=== PATIENT | female | born 1980 | race Caucasian/White ===

== ENCOUNTER 2023-09-22 09:42 | Emergency (ER) | payer MEDICAID ==
[2023-09-22 10:44] LABS: BASOPHILS ABSOLUTE AUTO 0.03 K/uL (0.00-0.20); BASOPHILS PERCENT AUTO 0.6 % (0.0-1.0); EOSINOPHILS ABSOLUTE AUTO 0.03 K/uL (0.00-0.45); EOSINOPHILS PERCENT AUTO 0.6 % (0.0-6.0); HEMATOCRIT 36.7 % (37.0-47.0); HEMOGLOBIN 13.2 g/dL (12.0-16.0); IMMATURE GRAN ABSOLUTE AUTO 0.01 K/uL (0.00-0.05); IMMATURE GRAN PERCENT AUTO 0.2 % (0.0-0.4); LYMPHOCYTES ABSOLUTE AUTO 0.77 K/uL (1.00-4.80); LYMPHOCYTES PERCENT AUTO 16.5 % (24.0-44.0); MEAN CORPUSCULAR HEMOGLOBIN 37.1 pg (28.0-32.0); MEAN CORPUSCULAR VOLUME 103.1 fL (83.0-99.0); MONOCYTES ABSOLUTE AUTO 0.44 K/uL (0.00-0.80); MONOCYTES PERCENT AUTO 9.4 % (0.0-8.0); NEUTROPHILS ABSOLUTE AUTO 3.38 K/uL (1.80-7.70); NEUTROPHILS PERCENT AUTO 72.7 % (41.0-71.0); PLATELET COUNT,PLT 159 K/uL (150-400); RED BLOOD CELL COUNT 3.56 M/uL (4.10-5.30); WHITE BLOOD CELL COUNT,WBC 4.66 K/uL (3.9-11.3)
[2023-09-22 11:05] LABS: A/G RATIO 0.9 (0.9-1.6); ALBUMIN 3.7 g/dL (3.4-5.0); BILIRUBIN TOTAL 0.3 mg/dL (0.2-1.0); CARBON DIOXIDE,CO2 26.9 mmol/L (21.0-32.0); CREATININE 0.6 mg/dL (0.6-1.0); EST CRCL DRUG DOSING (CG) 111.38 mL/min; PROTEIN TOTAL,TP 7.9 g/dL (6.4-8.2)
[2023-09-22 11:16] LABS: T3 FREE 2.29 pg/mL (2.18-3.98); T4 FREE 0.61 ng/dL (0.76-1.46); TSH ULTRASENSITIVE 1.52 uIU/mL (0.36-3.74)
== END 2023-09-22 13:45 | disposition home or self-care (01) ==
LOC: MW.ED 09:42
DX: E04.1 Nontoxic single thyroid nodule (principal)
CPT/HCPCS: 36415; 76536; 76536-26; 80053; 82308; 84439; 84443; 84481; 85025; 99283; 99284

== ENCOUNTER 2023-10-13 22:37 | Emergency (ER) | payer MEDICAID ==
[2023-10-13] MEDS ORDERED: Cefuroxime 250 MG Tab PO ONE (23:10)
== END 2023-10-13 23:52 | disposition home or self-care (01) ==
LOC: MW.ED 22:37
DX: L03.211 Cellulitis of face (principal)
CPT/HCPCS: 99283; A9270

== ENCOUNTER 2024-05-07 03:09 | Emergency (ER) | payer MEDICAID ==
[2024-05-07 03:34] LABS: BASOPHILS ABSOLUTE AUTO 0.03 K/uL (0.00-0.20); BASOPHILS PERCENT AUTO 0.6 % (0.0-1.0); EOSINOPHILS ABSOLUTE AUTO 0.07 K/uL (0.00-0.45); EOSINOPHILS PERCENT AUTO 1.5 % (0.0-6.0); IMMATURE GRAN ABSOLUTE AUTO 0.01 K/uL (0.00-0.05); IMMATURE GRAN PERCENT AUTO 0.2 % (0.0-0.4); LYMPHOCYTES ABSOLUTE AUTO 1.29 K/uL (1.00-4.80); LYMPHOCYTES PERCENT AUTO 27.9 % (24.0-44.0); MEAN CORPUSCULAR HEMOGLOBIN 37.1 pg (28.0-32.0); MEAN CORPUSCULAR HGB CONC 36.1 g/dL (32.0-36.0); MEAN CORPUSCULAR VOLUME 102.9 fL (83.0-99.0); MEAN PLATELET VOLUME 8.5 fL (9.4-12.3); MONOCYTES ABSOLUTE AUTO 0.51 K/uL (0.00-0.80); NEUTROPHILS ABSOLUTE AUTO 2.71 K/uL (1.80-7.70); NEUTROPHILS PERCENT AUTO 58.8 % (41.0-71.0); PLATELET COUNT,PLT 217 K/uL (150-400); WHITE BLOOD CELL COUNT,WBC 4.62 K/uL (3.9-11.3)
[2024-05-07 03:36] LABS: APPEARANCE,URINE CLEAR; BILIRUBIN,URINE NEGATIVE (NEGATIVE); COLOR,URINE YELLOW; GLUCOSE,URINE NEGATIVE (NEGATIVE); KETONES,URINE NEGATIVE (NEGATIVE); LEUKOCYTE ESTERASE,URINE NEGATIVE (NEGATIVE); NITRITE,URINE NEGATIVE (NEGATIVE); OCCULT BLOOD,URINE NEGATIVE (NEGATIVE); PROTEIN,URINE NEGATIVE (NEGATIVE); UROBILINOGEN,URINE 0.2 EU/dL (<2.0)
[2024-05-07] MEDS: Iopamidol 755 MG/ML 500 ML Multipack Bottle IVPUSH STA (03:42)
[2024-05-07] MEDS: Ketorolac 30 MG/ML SDV IVPUSH ONE (03:55)
[2024-05-07 03:56] LABS: ALBUMIN 3.7 g/dL (3.4-5.0); BILIRUBIN TOTAL 0.4 mg/dL (0.2-1.0); CALCIUM 8.5 mg/dL (8.5-10.1); CREATININE 0.6 mg/dL (0.6-1.0); EST CRCL DRUG DOSING (CG) 107.68 mL/min; POTASSIUM,K 3.7 mmol/L (3.5-5.1); PROTEIN TOTAL,TP 7.5 g/dL (6.4-8.2)
[2024-05-07] MEDS: Sodium Chloride 0.9% 10 ML Syringe FLUSH PRN (03:56)
[2024-05-07] MEDS: Sodium Chloride 0.9% 2.5 ML Syringe FLUSH PRN (03:56)
== END 2024-05-07 05:14 | disposition home or self-care (01) ==
LOC: MW.ED 03:09
DX: K85.90 Acute pancreatitis without necrosis or infection, unspecified (principal)
CPT/HCPCS: 36415; 74177; 80053; 81003; 83690; 84703; 85025; 96374; 99284; J1885; J3490; Q9967

== ENCOUNTER 2024-10-21 05:23 | Emergency (ER) | payer MEDICAID | END 2024-10-21 06:58 | disposition home or self-care (01) | LOC: MW.ED 05:23 | DX: S90.02XA Contusion of left ankle, initial encounter (principal); W50.0XXA Accidental hit or strike by another person, initial encounter | CPT/HCPCS: 73610-26-LT; 73610-LT; 99283 ==